=== PATIENT | female | born 1950 | race Asian ===

== ENCOUNTER 2016-10-18 21:44 | Emergency (ER) | payer OTHER ==
[~2016-10-18] VITALS: Ht 165.1 cm; Wt 106.6 kg
[2016-10-18 22:02] VITALS: BP 175/95
[2016-10-18 22:26] VITALS: TEMP 98.4
== END 2016-10-18 22:30 | disposition home or self-care (01) ==
LOC: ED 21:44
DX: B02.9 Zoster without complications (principal)
CPT/HCPCS: 99282

== ENCOUNTER 2016-10-21 16:57 | Outpatient (CLI) | payer OTHER ==
[2016-10-21 17:30] LABS: PLATELET COUNT 266 K/uL (152-353)
[2016-10-21 18:06] LABS: POTASSIUM 4.1 mmol/L (3.6-5.2)
== END 2016-10-21 19:08 | disposition home or self-care (01) ==
LOC: LABW 16:57
PROVIDERS: Nurse Practitioner
DX: R59.1 Generalized enlarged lymph nodes (principal); J02.9 Acute pharyngitis, unspecified
CPT/HCPCS: 36415; 80053; 85027; 85651; 86140; 86735

== ENCOUNTER 2016-10-25 11:51 | Outpatient (CLI) | payer OTHER | END 2016-10-25 19:15 | disposition home or self-care (01) | LOC: CT 11:51 | DX: J02.8 Acute pharyngitis due to other specified organisms (principal) ==

== ENCOUNTER 2016-12-09 08:33 | Outpatient (CLI) | payer OTHER ==
[2016-12-09 08:53] LABS: PLATELET COUNT 228 K/uL (152-353)
[2016-12-09 09:01] LABS: POTASSIUM 3.1 mmol/L (3.6-5.2)
== END 2016-12-09 19:44 | disposition home or self-care (01) ==
LOC: LABW 08:33
PROVIDERS: Nurse Practitioner
DX: Z01.89 Encounter for other specified special examinations (principal); R73.09 Other abnormal glucose
CPT/HCPCS: 36415; 80048; 85027

== ENCOUNTER 2016-12-22 10:18 | Outpatient (CLI) | payer OTHER ==
[2016-12-22 11:02] LABS: PLATELET COUNT 231 K/uL (152-353)
== END 2016-12-22 11:20 | disposition home or self-care (01) ==
LOC: LABW 10:18
PROVIDERS: Internal Medicine Gastroenterology
DX: K57.30 Diverticulosis of large intestine without perforation or abscess without bleeding (principal)
CPT/HCPCS: 36415; 85027

== ENCOUNTER 2017-04-25 09:01 | Outpatient (CLI) | payer OTHER ==
[2017-04-25 09:23] LABS: PLATELET COUNT 247 K/uL (152-353)
[2017-04-25 10:15] LABS: POTASSIUM 3.3 mmol/L (3.6-5.2)
== END 2017-04-25 18:57 | disposition home or self-care (01) ==
LOC: LABW 09:01
PROVIDERS: Nurse Practitioner
DX: E11.9 Type 2 diabetes mellitus without complications (principal); E78.00 Pure hypercholesterolemia, unspecified; I10 Essential (primary) hypertension; E55.9 Vitamin D deficiency, unspecified; R53.83 Other fatigue
CPT/HCPCS: 36415; 80053; 80061; 81000; 82043; 82306; 82570; 82607; 83036; 84443; 85027

== ENCOUNTER 2017-07-26 11:40 | Outpatient (CLI) | payer OTHER | END 2017-07-26 19:09 | disposition home or self-care (01) | LOC: RAD 11:40 | DX: M25.542 Pain in joints of left hand (principal) ==

== ENCOUNTER 2017-08-03 11:06 | Outpatient (CLI) | payer OTHER | END 2017-08-03 19:56 | disposition home or self-care (01) | LOC: LABW 11:06 | DX: M10.071 Idiopathic gout, right ankle and foot (principal) | CPT/HCPCS: 36415; 84550; 85651 ==

== ENCOUNTER 2017-08-22 10:47 | Outpatient (CLI) | payer OTHER | END 2017-08-22 20:24 | disposition home or self-care (01) | LOC: LABW 10:47 | DX: M10.071 Idiopathic gout, right ankle and foot (principal) | CPT/HCPCS: 36415; 84550; 85651 ==

== ENCOUNTER 2018-02-14 08:47 | Outpatient (CLI) | payer OTHER | END 2018-02-14 23:38 | disposition home or self-care (01) | LOC: MAMMO 08:47 | DX: Z12.31 Encounter for screening mammogram for malignant neoplasm of breast (principal) ==

== ENCOUNTER 2018-03-21 19:33 | Emergency (ER) | payer OTHER ==
[~2018-03-21] VITALS: Ht 165.1 cm; Wt 102.1 kg
[2018-03-21 21:19] LABS: PLATELET COUNT 292 K/uL (152-353)
[2018-03-21 21:38] LABS: SODIUM 138 mmol/L (136-145)
[2018-03-21 21:47] LABS: POTASSIUM 4.7 mmol/L (3.6-5.2)
[2018-03-21 23:10] VITALS: BP 152/86; TEMP 98.6
== END 2018-03-21 23:10 | disposition home or self-care (01) ==
LOC: ED 19:33
PROVIDERS: Internal Medicine
DX: R27.0 Ataxia, unspecified (principal); R42 Dizziness and giddiness; R11.0 Nausea; R19.7 Diarrhea, unspecified
CPT/HCPCS: 80053; 82550; 84484; 85027; 93005; 96365; 99284

== ENCOUNTER 2018-03-24 09:39 | Emergency (ER) | payer OTHER ==
[~2018-03-24] VITALS: Ht 165.1 cm; Wt 102.1 kg
[2018-03-24 09:48] VITALS: TEMP 97.3
[2018-03-24 10:32] LABS: PLATELET COUNT 283 K/uL (152-353)
[2018-03-24 10:39] LABS: POTASSIUM 4.2 mmol/L (3.6-5.2)
[2018-03-24 12:26] VITALS: BP 139/72
== END 2018-03-24 12:41 | disposition home or self-care (01) ==
LOC: ED 09:39
DX: E11.9 Type 2 diabetes mellitus without complications (principal)
CPT/HCPCS: 36415; 80053; 81000; 83036; 84484; 85027; 93005; 99283

== ENCOUNTER 2018-06-13 14:50 | Outpatient (CLI) | payer OTHER | END 2018-06-13 20:58 | disposition home or self-care (01) | LOC: LABW 14:50 | DX: B35.1 Tinea unguium (principal) | CPT/HCPCS: 36415; 84450; 84460 ==

== ENCOUNTER 2018-06-19 15:37 | Outpatient (CLI) | payer OTHER | END 2018-06-19 20:38 | disposition home or self-care (01) | LOC: RAD 15:37 | DX: M17.11 Unilateral primary osteoarthritis, right knee (principal) ==

== ENCOUNTER 2018-12-18 09:00 | Outpatient (CLI) | payer OTHER ==
[~2018-12-18] VITALS: Ht 165.1 cm; Wt 103.4 kg
== END 2018-12-18 19:11 | disposition home or self-care (01) ==
LOC: CT 09:00
DX: R10.11 Right upper quadrant pain (principal)
CPT/HCPCS: 36415; 82565; 84520; J0461; J1200; J2920; Q9963

== ENCOUNTER 2019-03-07 15:47 | Outpatient (CLI) | payer OTHER | END 2019-03-07 23:59 | LOC: MAMMO 15:47 | DX: Z12.31 Encounter for screening mammogram for malignant neoplasm of breast (principal) ==

== ENCOUNTER 2019-05-09 06:54 | Emergency (ER) | payer OTHER ==
[~2019-05-09] VITALS: Ht 165.1 cm; Wt 101.2 kg
[2019-05-09 07:03] VITALS: TEMP 98.2
[2019-05-09 07:52] LABS: POTASSIUM 4.1 mmol/L (3.6-5.2); SODIUM 141 mmol/L (136-145)
[2019-05-09 08:03] LABS: PLATELET COUNT 269 K/uL (152-353)
[2019-05-09 09:35] VITALS: BP 108/75
== END 2019-05-09 09:35 | disposition home or self-care (01) ==
LOC: ED 06:54
PROVIDERS: Emergency Medicine
DX: K21.9 Gastro-esophageal reflux disease without esophagitis (principal); R07.89 Other chest pain
CPT/HCPCS: 80053; 82550; 82553; 84484; 85027; 93005; 99284

== ENCOUNTER 2019-06-20 12:57 | Observation (INO) | payer OTHER ==
[~2019-06-20] VITALS: Ht 165.1 cm; Wt 99.4 kg
[2019-06-20 14:48] LABS: POTASSIUM 3.7 mmol/L (3.6-5.2); SODIUM 144 mmol/L (136-145)
[2019-06-20 14:53] LABS: PLATELET COUNT 226 K/uL (152-353)
[2019-06-20 15:12] VITALS: BP 160/88; TEMP 98.5; Ht 165.1 cm; Wt 99.4 kg
[2019-06-20 16:00] VITALS: BP 143/77; TEMP 98.2
[2019-06-20] MEDS ORDERED: METF500T PO (18:36)
[2019-06-20] MEDS ORDERED: METOCLOPRAMIDE10 M1 PO (18:38)
[2019-06-20] MEDS ORDERED: PANTOPRAZOLE 40MG TA PO (18:39)
[2019-06-20] MEDS ORDERED: MECLIZINE25 MG PO (18:40)
[2019-06-20] MEDS ORDERED: LIPITOR20 MG PO (18:40)
[2019-06-20] MEDS ORDERED: LATA0.00 OPTH (18:44)
[2019-06-20] MEDS ORDERED: BENICAR HCT1 TAB PO (18:45)
[2019-06-20 20:00] VITALS: BP 143/61; TEMP 98.6
[2019-06-21] VITALS: BP 118/60; TEMP 98.7
[2019-06-21 03:55] VITALS: BP 117/52; TEMP 98.4
[2019-06-21 08:00] VITALS: BP 135/66; TEMP 98.2
[2019-06-21 12:00] VITALS: BP 140/77; TEMP 98.6
[2019-06-21 16:00] VITALS: BP 136/78; TEMP 98.7
[2019-06-21 20:00] VITALS: BP 153/48; TEMP 99
[2019-06-22] VITALS: BP 114/64; TEMP 98.8
[2019-06-22 04:00] VITALS: BP 118/64; TEMP 98.3
[2019-06-22 07:37] LABS: POTASSIUM 3.7 mmol/L (3.6-5.2)
[2019-06-22 07:46] LABS: PLATELET COUNT 225 K/uL (152-353)
[2019-06-22 08:00] VITALS: BP 112/50; TEMP 98.6
[2019-06-22 12:05] VITALS: BP 128/78; TEMP 99.3
[2019-06-22] MEDS ORDERED: RANI150T78 PO (14:07)
== END 2019-06-22 15:50 | disposition home or self-care (01) ==
LOC: MED/SURG 12:57
PROVIDERS: Internal Medicine; ADMIT Nurse Practitioner
DX: R13.19 Other dysphagia (principal); K44.9 Diaphragmatic hernia without obstruction or gangrene; E11.9 Type 2 diabetes mellitus without complications; E78.49 Other hyperlipidemia; I10 Essential (primary) hypertension; K21.9 Gastro-esophageal reflux disease without esophagitis; K27.9 Peptic ulcer, site unspecified, unspecified as acute or chronic, without hemorrhage or perforation; R05 Cough; R10.13 Epigastric pain
CPT/HCPCS: 80053; 82550; 82948; 84484; 85027; 87502; 93005; 94640; 94664; 94760; 96367; 96372; 96374; 99220; G0378; G0379; J1650; J1956

== ENCOUNTER 2019-07-31 07:53 | Outpatient (CLI) | payer OTHER ==
[~2019-07-31] VITALS: Ht 165.1 cm; Wt 99.8 kg
[~2019-07-31 07:53] MED LIST: BENICAR HCT1 TAB PO; LATA0.00 OPTH; LIPITOR20 MG PO; MECLIZINE25 MG PO; METF500T PO; METOCLOPRAMIDE10 M1 PO; PANTOPRAZOLE 40MG TA PO; RANI150T78 PO
== END 2019-07-31 19:36 | disposition home or self-care (01) ==
LOC: NM 07:53
DX: R06.02 Shortness of breath (principal); E04.8 Other specified nontoxic goiter
CPT/HCPCS: A9500; J2785

== ENCOUNTER 2019-08-24 11:29 | Outpatient (CLI) | payer OTHER | END 2019-08-24 21:19 | disposition home or self-care (01) | LOC: RAD 11:29 | DX: M25.512 Pain in left shoulder (principal) ==

== ENCOUNTER 2019-12-19 08:59 | Outpatient (CLI) | payer OTHER | END 2019-12-19 21:49 | disposition home or self-care (01) | LOC: MAMMO 08:59 | DX: N64.4 Mastodynia (principal); N63.10 Unspecified lump in the right breast, unspecified quadrant; N60.11 Diffuse cystic mastopathy of right breast; N60.12 Diffuse cystic mastopathy of left breast | CPT/HCPCS: G0279 ==

== ENCOUNTER 2020-04-19 18:55 | Emergency (ER) | payer OTHER ==
[~2020-04-19] VITALS: Ht 165.1 cm; Wt 102.1 kg
[2020-04-19 20:05] VITALS: BP 142/70; TEMP 98.1
== END 2020-04-19 20:05 | disposition home or self-care (01) ==
LOC: ED 18:55
DX: M17.11 Unilateral primary osteoarthritis, right knee (principal); M54.5 Low back pain; G89.29 Other chronic pain; M54.16 Radiculopathy, lumbar region
CPT/HCPCS: 96372; 99283; J1885; J2930

== ENCOUNTER 2020-05-01 15:02 | Outpatient (CLI) | payer OTHER | END 2020-05-01 22:19 | disposition home or self-care (01) | LOC: MAMMO 15:02 | DX: Z12.31 Encounter for screening mammogram for malignant neoplasm of breast (principal) ==

== ENCOUNTER 2020-05-21 09:36 | Emergency (ER) | payer OTHER ==
[~2020-05-21] VITALS: Ht 165.1 cm; Wt 102.1 kg
[2020-05-21 12:44] LABS: PLATELET COUNT 232 K/uL (152-353)
[2020-05-21 12:48] LABS: POTASSIUM 4.3 mmol/L (3.6-5.2)
[2020-05-21 13:26] LABS: PARTIAL THROMBOPLASTIN TIME 28.5 SECONDS (24.5-33.6)
[2020-05-21 14:18] VITALS: BP 145/68; TEMP 98.3
== END 2020-05-21 14:30 | disposition home or self-care (01) ==
LOC: ED 09:36
PROVIDERS: Hospitalist
DX: M54.5 Low back pain (principal); G89.29 Other chronic pain; M79.605 Pain in left leg; M79.604 Pain in right leg
CPT/HCPCS: 80048; 85027; 85379; 85610; 85730; 96372; 99283; J1885; J2360

== ENCOUNTER 2020-06-23 08:08 | Emergency (ER) | payer OTHER ==
[~2020-06-23] VITALS: Ht 165.1 cm; Wt 98.4 kg
[2020-06-23 08:23] VITALS: TEMP 99.8
[2020-06-23 09:28] LABS: PLATELET COUNT 228 K/uL (152-353)
[2020-06-23 09:33] LABS: POTASSIUM 3.8 mmol/L (3.6-5.2)
[2020-06-23 11:11] VITALS: BP 138/82
== END 2020-06-23 11:12 | disposition home or self-care (01) ==
LOC: ED 08:08
PROVIDERS: Emergency Medicine Emergency Medical Services
DX: J20.9 Acute bronchitis, unspecified (principal); J01.80 Other acute sinusitis
CPT/HCPCS: 80048; 81000; 85027; 99283

== ENCOUNTER 2020-07-21 18:34 | Inpatient (IN) | payer OTHER ==
[~2020-07-21] VITALS: Ht 165.1 cm; Wt 107.5 kg
[2020-07-21] VITALS (8 sets, daily range): BP systolic 94–193; BP diastolic 57–86; TEMP 99.4–99.5
[2020-07-21 20:24] LABS: PLATELET COUNT 165 K/uL (152-353)
[2020-07-21 20:44] LABS: POTASSIUM 4.2 mmol/L (3.6-5.2)
[2020-07-22 01:56] VITALS: BP 113/62; TEMP 99.4; Ht 165.1 cm; Wt 107.5 kg
[2020-07-22] MEDS ORDERED: METOCLOPRAM10 MG PO (02:43)
[2020-07-22] MEDS ORDERED: PANTOPRAZOLE 40MG TA PO (02:44)
[2020-07-22] MEDS ORDERED: EQ MOTION SICKN25 MG PO (02:45)
[2020-07-22] MEDS ORDERED: FURO20TA67 PO (02:46)
[2020-07-22] MEDS ORDERED: DOXEPIN HCL10 MG PO (02:48)
[2020-07-22] MEDS ORDERED: OZEMPIC2 MG/1.5 M SC (02:49)
[2020-07-22] MEDS ORDERED: MULTIVITAMI1 PO (02:50)
[2020-07-22] MEDS ORDERED: ASCO500T18 PO (02:51)
[2020-07-22] MEDS ORDERED: VITAMIN D31000 UNIT PO (02:51)
[2020-07-22 03:40] VITALS: BP 97/51; TEMP 98.2
[2020-07-22 08:00] VITALS: BP 98/65; TEMP 97.7
[2020-07-22 12:00] VITALS: BP 98/56; TEMP 98.1
[2020-07-22 16:00] VITALS: BP 112/67; TEMP 98.4
[2020-07-22 20:00] VITALS: BP 95/55; TEMP 98.9
[2020-07-23] VITALS: BP 117/67; TEMP 98.1
[2020-07-23 04:00] VITALS: BP 128/72; TEMP 97.8
[2020-07-23 05:36] LABS: PLATELET COUNT 173 K/uL (152-353)
[2020-07-23 05:51] LABS: POTASSIUM 4.8 mmol/L (3.6-5.2)
[2020-07-23 08:00] VITALS: BP 121/65; TEMP 98.3
[2020-07-23 12:00] VITALS: BP 111/58; TEMP 98.2
[2020-07-23 16:00] VITALS: BP 109/57; TEMP 99.8
[2020-07-23 20:00] VITALS: BP 117/61; TEMP 99
[2020-07-24] VITALS (7 sets, daily range): BP systolic 125–166; BP diastolic 65–81; TEMP 97.5–98.7
[2020-07-24 04:46] LABS: PLATELET COUNT 197 K/uL (152-353)
[2020-07-24 05:25] LABS: POTASSIUM 4.4 mmol/L (3.6-5.2)
[2020-07-25 03:39] VITALS: BP 126/70; TEMP 97.7
[2020-07-25 05:17] LABS: PLATELET COUNT 219 K/uL (152-353)
[2020-07-25 05:21] LABS: POTASSIUM 5.1 mmol/L (3.6-5.2)
[2020-07-25 08:00] VITALS: BP 133/63; TEMP 98.1
[2020-07-25 12:00] VITALS: BP 133/68; TEMP 98.6
[2020-07-25 16:00] VITALS: BP 132/68; TEMP 98.4
[2020-07-25 20:00] VITALS: BP 145/76; TEMP 98.1
[2020-07-26] VITALS (7 sets, daily range): BP systolic 137–183; BP diastolic 67–87; TEMP 98.1–99
[2020-07-26 06:17] LABS: PLATELET COUNT 241 K/uL (152-353)
[2020-07-26 06:30] LABS: POTASSIUM 4.3 mmol/L (3.6-5.2)
[2020-07-27 04:00] VITALS: BP 163/78; TEMP 97.4
[2020-07-27 05:33] LABS: PLATELET COUNT 269 K/uL (152-353)
[2020-07-27 05:45] LABS: POTASSIUM 3.9 mmol/L (3.6-5.2)
[2020-07-27 08:00] VITALS: BP 144/73; TEMP 98.2
[2020-07-27 12:00] VITALS: BP 127/55; TEMP 97.6
[2020-07-27 16:00] VITALS: BP 149/69; TEMP 97.9
[2020-07-27 20:00] VITALS: BP 156/88; TEMP 98.5
[2020-07-28] VITALS (7 sets, daily range): BP systolic 126–152; BP diastolic 62–80; TEMP 98–98.5
[2020-07-28 06:33] LABS: PLATELET COUNT 285 K/uL (152-353)
[2020-07-28 06:42] LABS: POTASSIUM 3.6 mmol/L (3.6-5.2)
[2020-07-29 04:00] VITALS: BP 116/62; TEMP 98
[2020-07-29 06:25] LABS: PLATELET COUNT 287 K/uL (152-353)
[2020-07-29 06:50] LABS: POTASSIUM 3.9 mmol/L (3.6-5.2)
[2020-07-29 08:00] VITALS: BP 140/78; TEMP 98.4
[2020-07-29 12:00] VITALS: BP 138/63; TEMP 98.4
== END 2020-07-29 17:15 | disposition home or self-care (01) | DRG 177 ==
LOC: ED 18:34 → MED/SURG 22:47 → UNDODEPER 07-22 23:05 → MED/SURG 07-29 17:15
PROVIDERS: Internal Medicine Endocrinology, Diabetes & Metabolism; ADMIT Emergency Medicine Emergency Medical Services; ATTEND Internal Medicine
DX: U07.1 COVID-19 (principal); J18.8 Other pneumonia, unspecified organism; E78.49 Other hyperlipidemia; H40.89 Other specified glaucoma; E11.22 Type 2 diabetes mellitus with diabetic chronic kidney disease; I12.9 Hypertensive chronic kidney disease with stage 1 through stage 4 chronic kidney disease, or unspecified chronic kidney disease; N18.30 Chronic kidney disease, stage 3 unspecified
CPT/HCPCS: 36415; 80053; 82570; 84300; 84439; 84443; 85027; 87635; 93005; 94664; 94760; 96360; 96375; 99284; J0456; J0696; J1100; J1650; J1885; J2405; U0003

== ENCOUNTER 2020-08-29 09:38 | Outpatient (CLI) | payer OTHER ==
[~2020-08-29 09:38] MED LIST changes: +ASCO500T18 PO; +DOXEPIN HCL10 MG PO; +EQ MOTION SICKN25 MG PO; +FURO20TA67 PO; +METOCLOPRAM10 MG PO; +MULTIVITAMI1 PO; +OZEMPIC2 MG/1.5 M SC; +VITAMIN D31000 UNIT PO
[2020-08-29 10:11] LABS: PLATELET COUNT 333 K/uL (152-353)
[2020-08-29 10:33] LABS: POTASSIUM 3.3 mmol/L (3.6-5.2)
== END 2020-08-29 21:49 | disposition home or self-care (01) ==
LOC: LABW 09:38
PROVIDERS: ATTEND Nurse Practitioner Family
DX: I10 Essential (primary) hypertension (principal); M10.9 Gout, unspecified; R06.09 Other forms of dyspnea
CPT/HCPCS: 36415; 80053; 81000; 83880; 84550; 85027

== ENCOUNTER 2020-09-15 15:08 | Observation (INO) | payer OTHER ==
[2020-09-15] VITALS (10 sets, daily range): BP systolic 125–178; BP diastolic 72–95; TEMP 98.2
[~2020-09-15] VITALS: Ht 165.1 cm; Wt 103.9 kg
[2020-09-15 15:58] LABS: PLATELET COUNT 264 K/uL (152-353)
[2020-09-15 16:06] LABS: POTASSIUM 3.9 mmol/L (3.6-5.2); SODIUM 140 mmol/L (136-145)
[2020-09-16] VITALS (8 sets, daily range): BP systolic 115–157; BP diastolic 55–83; TEMP 98.1–99.2; Ht 165.1 cm; Wt 103.9 kg
--- NOTE | 2020-09-16 02:20 | NUR ---
09/15/2020 AT 2050 PATIENT ADMITTED TO ROOM# 1110 VIA WHEELCHAIR FROM THE ER, REPORT GIVEN BY FE ROBERTSON RN. PATIENT IS ALERT AND ORIENTED X 4, SKIN WARM AND DRY AND NO ACUTE DISTRESS NOTED AT THIS TIME. PATIENT ORIENTED TO ROOM AND CALL SYSTEM AND VERBALIZES UNDERSTANDING OF ALL INFORMATION GIVEN AND DENIES ANY QUESTIONS OR COMPLAINTS AT THIS TIME. PATIENT ASSESSED AND ADMISSION ASSESSMENT COMPLETED. PATIENT TOLERATED WELL. PATIENT HAS A IV SITE, A 20G IN HER LEFT AC WHICH IS SALINE LOCKED AT THIS TIME. CALL LIGHT WITHIN HER REACH. WILL CONTINUE TO MONITOR.
[2020-09-16] MEDS ORDERED: ZINC220C4 PO (06:02)
[2020-09-16 06:53] LABS: POTASSIUM 4.5 mmol/L (3.6-5.2); SODIUM 138 mmol/L (136-145)
--- NOTE | 2020-09-16 07:00 | NUR ---
REC'D REPORT FROM FRANSISCO LUDWIG RN. PER FRANSISCO GARCIA NOTIFIED OF AM LABS AND HOME MEDS.
[2020-09-16 07:10] LABS: PLATELET COUNT 222 K/uL (152-353)
--- NOTE | 2020-09-16 07:55 | NUR ---
PT SITTING UP IN BED WATCHING TV. NAD NOTED. PT DENIES ANY CHEST PAIN AT THIS TIME. PT REPORTS FEELING BETTER THIS MORNING. AM ASSESSMENT COMPLETED AT THIS TIME. NO SWELLING, SOB, OR ABNORMAL LUNGS SOUNDS NOTED.
--- NOTE | 2020-09-16 09:20 | NUR ---
PT AM MEDS GIVEN AT THIS TIME. EXPLAINED TO PT WHAT EACH MED IS AND WHY SHE IS REC'ING THESE. PT VOICES UNDERSTANDING. WILL CON'T TO MONITOR.
[2020-09-16] MEDS ORDERED: BENICAR HCT1 TAB PO (10:29)
--- NOTE | 2020-09-16 14:30 | NUR ---
SPOKE TO DR. RADHA FAROOQING PT COMPLAINING OF A HEADACHE, DR. GARCIA ORDERS TYLENOL 1G PO ONCE, NO FURTHER ORDERS GIVEN
--- NOTE | 2020-09-16 21:00 | NUR ---
FSBS 179.
--- NOTE | 2020-09-16 21:40 | NUR ---
TOOK PT HER NIGHTLY MEDICATIONS, TOOK MEDS PO WITH NO PROBLEMS, TALKATIVE WITH ALTERNATIVE FINANCING SPECIALIST AND DENIES ANY NEEDS AT THIS TIME, RAILS UP, BED IN LOW POSITION, CALL LIGHT IN REACH.
--- NOTE | 2020-09-17 01:08 | NUR ---
RESTING WITH EYES CLOSED NO S/S OF PAIN OR DISTRESS NOTED, RESP RATE NONLABORED, IV INTACT, TELEMETRY IN USE, AROUSES BRIEFLY AND DENIES ANY PAIN OR PROBLEMS AT THIS TIME. ENCOURAGED TO CALL NEEDED, RAILS UP, BED IN LOW POSITION, CALL LIGHT IN REACH.
--- NOTE | 2020-09-17 03:00 | NUR ---
RESTING WITH EYES CLOSED, NO S/S OFF PAIN OR DISTRESS NOTED, WILL MONITOR CLOSELY, RAILS UP, BED IN LOW POSITION. TELEMETRY IN USE, IV LOCK INTACT.
[2020-09-17 04:00] VITALS: BP 105/63; TEMP 98
--- NOTE | 2020-09-17 05:48 | NUR ---
RESTING WITH EYES CLOSED, NO S/S OF PAIN OR DISTRESS NOTED, RESP RATE NONLABORED, TELEMETRY IN USE WITH REGULAR RATE OF 88, IV INTACT, WILL MONITOR, RAILS UP, BED IN LOW POSITION, CALL LIGHT IN REACH.
--- NOTE | 2020-09-17 05:49 | NUR ---
NOTE PT AROUSED BRIEFLY AND DENIES ANY PAIN OR PROBLEMS AT THIS TIME. ALERT AND ORIENTED NO DISTRESS NOTED. DENIES ANY NEEDS.
[2020-09-17 08:00] VITALS: BP 146/80; TEMP 98.2
--- NOTE | 2020-09-17 08:00 | NUR ---
PATIENT SITTING ON SIDE OF BED. NAD NOTED. MORNING MEDICATIONS GIVEN. PATIENT DRESSED HERSELF AND WAITING FOR DISCHARGE.
--- NOTE | 2020-09-17 11:15 | NUR ---
OFFERED PT SHOWER PRIOR TO PLACEMENT OF CARDIC MONITOR. SHE STATED SHE WOULD TAKE A MOON BATH WHEN SHE GETS HOME
--- NOTE | 2020-09-17 11:20 | NUR ---
RESPIRATORY AT BEDSIDE TO PLACE HALTER MONITOR.
[2020-09-17 12:00] VITALS: BP 131/76; TEMP 97.8
--- NOTE | 2020-09-17 12:05 | NUR ---
1136 PT UP TO BR HR INCREASE TO 147 PER TELE. PT C/O CHEST PRESSURE, TINGLING IN LEFT SHOULDER, SHORTNESS OF BREATH. DR GARCIA NOTIFIED NEW ORDERS GIVEN FOR EKG COREG AND TRANSFER.
--- NOTE | 2020-09-17 12:15 | NUR ---
1143 CALLED [facility] TRANSFER [place] SPOKE TO KESHA. I WAS PLACED ON HOLD THEN CONNECTION WAS LOST. CALLED BACK SPOKE TO MANJU MIKE PT COORD. FOR BED ASSIGNMENT. AT 1213 PATRICK SSTATED SHE WOULD CALL BACK TO FACILITY WITH ANY UPDATED INFORMATION
--- NOTE | 2020-09-17 14:13 | NUR ---
1330 SPOKE TO ERVIN BAI PT ASSIGNED TO BED [address] RONDON ACCEPTED PT PER ISAAK GARCIA DO. 1405 SPOKE TO OSMAN AT [facility] ON [facility]. PT NOW ASSIGNED TO BED 414 ON TELE FLOOR. CALL REPORT TO [phone], FAX CHART TO [phone].
--- NOTE | 2020-09-17 15:14 | NUR ---
1430 CALLED [phone] TO GIVE REPORT. NURSE TO RECIEVE THIS PT IS NOT AVALIABLE AT THIS TIME
--- NOTE | 2020-09-17 15:20 | NUR ---
CALLED REPORT TO SANDRA AT [phone]
--- NOTE | 2020-09-17 15:27 | NUR ---
[facility] CALLED BACK [facility] WILL ARRIVE TO GET PT TO TRANSPORT TO [facility] IN 45 MINUTES
--- NOTE | 2020-09-17 16:50 | NUR ---
HERE TO MARKETING CONSULTANT PATIENT. PATIENT TRANSPORTED TO [place].
--- NOTE | 2020-09-17 17:40 | NUR ---
1645-[facility] ARRIVED TO TRANSPORT PT. DR. GARCIA HERE TO SEE PT BEFORE DISCHARGED TO [facility] IN [facility]. PT LEFT IN NO DISTRESS.
== END 2020-09-17 16:50 | disposition short-term general hospital (02) ==
LOC: ED 15:08 → MED/SURG 19:10
PROVIDERS: ADMIT Emergency Medicine Emergency Medical Services; ATTEND Family Medicine
DX: I20.0 Unstable angina (principal); R00.0 Tachycardia, unspecified; E66.8 Other obesity; E11.9 Type 2 diabetes mellitus without complications; I10 Essential (primary) hypertension; R07.9 Chest pain, unspecified; Z79.899 Other long term (current) drug therapy
CPT/HCPCS: 36415; 80053; 80307; 82550; 82948; 83735; 84100; 84443; 84484; 85027; 85379; 87635; 93005; 96360; 96367; 96372; 96374; 96375; 99220; 99284; G0378; J1100; J1200; J1885; J3475; Q9963; U0003

== ENCOUNTER 2020-09-24 13:32 | Outpatient (CLI) | payer OTHER ==
[~2020-09-24 13:32] MED LIST changes: +ZINC220C4 PO
[2020-09-24 14:32] LABS: PLATELET COUNT 264 K/uL (152-353)
[2020-09-24 15:25] LABS: POTASSIUM 4.1 mmol/L (3.6-5.2)
== END 2020-09-24 19:58 | disposition home or self-care (01) ==
LOC: LABW 13:32
PROVIDERS: ATTEND Student in an Organized Health Care Education/Training Program
DX: N18.32 Chronic kidney disease, stage 3b (principal); R53.82 Chronic fatigue, unspecified; E11.9 Type 2 diabetes mellitus without complications
CPT/HCPCS: 36415; 80053; 80074; 81000; 82043; 82306; 82330; 82570; 83036; 83516; 83735; 83970; 84155; 84165; 85027; 86038; 86160; 86255; 86430; 86592; 87535; G0432

== ENCOUNTER 2020-11-25 11:08 | Outpatient (CLI) | payer OTHER ==
[2020-11-25 11:33] LABS: PLATELET COUNT 233 K/uL (152-353)
[2020-11-25 11:44] LABS: POTASSIUM 3.6 mmol/L (3.6-5.2)
== END 2020-11-25 22:00 | disposition home or self-care (01) ==
LOC: LABW 11:08
PROVIDERS: ATTEND Student in an Organized Health Care Education/Training Program
DX: N18.32 Chronic kidney disease, stage 3b (principal)
CPT/HCPCS: 36415; 80053; 81000; 82306; 82570; 83970; 84155; 85027

== ENCOUNTER 2021-01-09 11:02 | Outpatient (CLI) | payer OTHER ==
[2021-01-19 08:20] LABS: POTASSIUM 4.3 mmol/L (3.6-5.2)
== END 2021-01-09 17:00 | disposition home or self-care (01) ==
LOC: LABW 11:02
PROVIDERS: ATTEND Internal Medicine Cardiovascular Disease
DX: I50.9 Heart failure, unspecified (principal); Z79.899 Other long term (current) drug therapy
CPT/HCPCS: 36415; 80048

== ENCOUNTER 2021-01-27 11:03 | Outpatient (CLI) | payer OTHER | END 2021-01-27 22:25 | disposition home or self-care (01) | LOC: RAD 11:03 | PROVIDERS: ATTEND Nurse Practitioner Family | DX: M54.17 Radiculopathy, lumbosacral region (principal) ==

== ENCOUNTER 2021-01-28 12:53 | Emergency (ER) | payer OTHER ==
[~2021-01-28] VITALS: Ht 165.1 cm; Wt 103.9 kg
[2021-01-28 13:58] LABS: PLATELET COUNT 222 K/uL (152-353)
[2021-01-28 14:04] LABS: SODIUM 142 mmol/L (136-145)
[2021-01-28 18:00] VITALS: BP 122/65; TEMP 97.8
== END 2021-01-28 18:00 | disposition home or self-care (01) ==
LOC: ED 12:53
PROVIDERS: Family Medicine
DX: E86.0 Dehydration (principal)
CPT/HCPCS: 36415; 80053; 82550; 82553; 84484; 85027; 96360; 96375; 99284; J2405

== ENCOUNTER 2021-02-24 09:22 | Outpatient (CLI) | payer OTHER | END 2021-02-24 19:22 | disposition home or self-care (01) | LOC: US 09:22 | PROVIDERS: ATTEND Nurse Practitioner Family | DX: I73.9 Peripheral vascular disease, unspecified (principal) ==

== ENCOUNTER 2021-03-03 09:37 | Emergency (ER) | payer OTHER ==
[~2021-03-03] VITALS: Ht 165.1 cm; Wt 100.2 kg
[2021-03-03 12:35] VITALS: BP 141/79; TEMP 98.1
== END 2021-03-03 12:35 | disposition home or self-care (01) ==
LOC: ED 09:37
DX: M54.16 Radiculopathy, lumbar region (principal)
CPT/HCPCS: 96372; 99282; 99283; J1885; J2930

== ENCOUNTER 2021-03-30 15:18 | Outpatient (CLI) | payer OTHER ==
[2021-03-30 15:39] LABS: PLATELET COUNT 265 K/uL (152-353)
== END 2021-03-30 22:26 | disposition home or self-care (01) ==
LOC: LABW 15:18
PROVIDERS: ATTEND Student in an Organized Health Care Education/Training Program
DX: I12.9 Hypertensive chronic kidney disease with stage 1 through stage 4 chronic kidney disease, or unspecified chronic kidney disease (principal); N18.32 Chronic kidney disease, stage 3b; E11.9 Type 2 diabetes mellitus without complications; E87.6 Hypokalemia
CPT/HCPCS: 36415; 80053; 81000; 82306; 82570; 83036; 83970; 84155; 85027

== ENCOUNTER 2021-04-07 11:27 | Outpatient (CLI) | payer OTHER ==
[2021-04-07 11:50] LABS: PLATELET COUNT 278 K/uL (152-353)
[2021-04-07 12:05] LABS: POTASSIUM 4.3 mmol/L (3.6-5.2); SODIUM 141 mmol/L (136-145)
== END 2021-04-07 20:11 | disposition home or self-care (01) ==
LOC: LABW 11:27 → CT 11:27 → LABW 20:11
PROVIDERS: ATTEND Nurse Practitioner Family
DX: Z20.822 Contact with and (suspected) exposure to COVID-19 (principal); R06.02 Shortness of breath; R79.89 Other specified abnormal findings of blood chemistry
CPT/HCPCS: 36415; 80053; 82550; 82553; 82728; 83735; 83880; 84100; 84484; 85027; 85379; 86140

== ENCOUNTER 2021-04-08 15:33 | Outpatient (CLI) | payer OTHER | END 2021-04-08 20:40 | disposition home or self-care (01) | LOC: NM 15:33 | PROVIDERS: ATTEND Family Medicine | DX: R79.1 Abnormal coagulation profile (principal) | CPT/HCPCS: A9540; A9567 ==

== ENCOUNTER 2021-04-13 15:29 | Outpatient (CLI) | payer OTHER ==
[2021-04-13 15:55] LABS: POTASSIUM 4.2 mmol/L (3.6-5.2)
== END 2021-04-13 20:11 | disposition home or self-care (01) ==
LOC: LABW 15:29
PROVIDERS: ATTEND Student in an Organized Health Care Education/Training Program
DX: I12.9 Hypertensive chronic kidney disease with stage 1 through stage 4 chronic kidney disease, or unspecified chronic kidney disease (principal); N18.32 Chronic kidney disease, stage 3b; E11.9 Type 2 diabetes mellitus without complications; E87.6 Hypokalemia; R80.8 Other proteinuria
CPT/HCPCS: 36415; 80053; 81000; 82570; 84155

== ENCOUNTER 2021-08-04 14:15 | Outpatient (CLI) | payer OTHER ==
[2021-08-04 15:01] LABS: POTASSIUM 4.3 mmol/L (3.6-5.2)
== END 2021-08-04 19:03 | disposition home or self-care (01) ==
LOC: LABW 14:15
PROVIDERS: ATTEND Student in an Organized Health Care Education/Training Program
DX: I12.9 Hypertensive chronic kidney disease with stage 1 through stage 4 chronic kidney disease, or unspecified chronic kidney disease (principal); N18.32 Chronic kidney disease, stage 3b; E11.9 Type 2 diabetes mellitus without complications; E87.6 Hypokalemia; R80.8 Other proteinuria; N25.81 Secondary hyperparathyroidism of renal origin
CPT/HCPCS: 36415; 80053; 81000; 82306; 82570; 83970; 84155; 85018; 85049

== ENCOUNTER 2021-10-28 14:27 | Outpatient (CLI) | payer OTHER ==
[2021-10-28 14:45] LABS: PLATELET COUNT 231 K/uL (152-353)
[2021-10-28 14:56] LABS: POTASSIUM 4.5 mmol/L (3.6-5.2)
== END 2021-10-28 21:37 | disposition home or self-care (01) ==
LOC: LABW 14:27
PROVIDERS: ATTEND Student in an Organized Health Care Education/Training Program
DX: I12.9 Hypertensive chronic kidney disease with stage 1 through stage 4 chronic kidney disease, or unspecified chronic kidney disease (principal); N18.32 Chronic kidney disease, stage 3b; E11.9 Type 2 diabetes mellitus without complications; E87.6 Hypokalemia; R80.8 Other proteinuria; N25.81 Secondary hyperparathyroidism of renal origin
CPT/HCPCS: 36415; 80053; 81000; 82306; 82570; 83970; 84156; 85027

== ENCOUNTER 2021-12-06 17:53 | Emergency (ER) | payer OTHER ==
[~2021-12-06] VITALS: Ht 165.1 cm; Wt 100.2 kg
[2021-12-06 18:54] LABS: PLATELET COUNT 172 K/uL (152-353)
[2021-12-06 19:16] LABS: POTASSIUM 5.4 mmol/L (3.6-5.2)
[2021-12-06 20:35] VITALS: BP 145/75; TEMP 97.9
== END 2021-12-06 20:40 | disposition home or self-care (01) ==
LOC: ED 17:53
PROVIDERS: Hospitalist
DX: R42 Dizziness and giddiness (principal); G44.209 Tension-type headache, unspecified, not intractable; E83.42 Hypomagnesemia; I50.9 Heart failure, unspecified
CPT/HCPCS: 36415; 80053; 80320; 81000; 82550; 83735; 83880; 84484; 85027; 85610; 85730; 93005; 94760; 96374; 96375; 99284; J1885; J2405

== ENCOUNTER 2021-12-26 16:19 | Observation (INO) | payer OTHER ==
[~2021-12-26] VITALS: Ht 165.1 cm; Wt 105.0 kg
[2021-12-26 16:20] VITALS: BP 157/60; TEMP 98.3
[2021-12-26 16:49] LABS: PLATELET COUNT 173 K/uL (152-353)
[2021-12-26 17:28] LABS: PARTIAL THROMBOPLASTIN TIME 28.7 SECONDS (24.5-33.6)
[2021-12-26 19:00] VITALS: BP 138/68
[2021-12-26 20:51] VITALS: BP 129/61; TEMP 98.4; Ht 165.1 cm; Wt 105.0 kg
[2021-12-27] VITALS: BP 113/51; TEMP 97.6
[2021-12-27 04:00] VITALS: BP 121/57; TEMP 97.8
[2021-12-27 05:48] LABS: PLATELET COUNT 139 K/uL (152-353)
[2021-12-27 06:22] LABS: POTASSIUM 4.1 mmol/L (3.6-5.2)
[2021-12-27 08:00] VITALS: BP 107/48; TEMP 97.6
[2021-12-27 12:00] VITALS: BP 102/49; TEMP 98.2
[2021-12-27 16:00] VITALS: BP 133/59; TEMP 98
[2021-12-27] MEDS ORDERED: BUME1TAB19 PO (16:15)
[2021-12-27] MEDS ORDERED: PEPCID40 MG PO (16:16)
[2021-12-27] MEDS ORDERED: METO50TA63 PO (16:35)
[2021-12-27] MEDS ORDERED: MONT10TA PO (16:36)
[2021-12-27] MEDS ORDERED: FLONASE AL50 MCG/ACT EN (16:37)
[2021-12-27 20:00] VITALS: BP 109/82; TEMP 98
[2021-12-28 00:10] VITALS: BP 117/50; TEMP 98.5
[2021-12-28 04:28] VITALS: BP 109/51; TEMP 97.7
[2021-12-28 07:52] VITALS: BP 115/60; TEMP 98.7
[2021-12-28] MEDS ORDERED: MAGN400T4 PO (09:01)
[2021-12-28 11:43] VITALS: BP 125/58; TEMP 98.7
== END 2021-12-28 14:49 | disposition home health service (06) ==
LOC: ED 16:19 → MED/SURG 17:40
PROVIDERS: Emergency Medicine; ADMIT Internal Medicine; ATTEND Internal Medicine
DX: E83.42 Hypomagnesemia (principal); M15.8 Other polyosteoarthritis; E66.8 Other obesity; I10 Essential (primary) hypertension; R53.1 Weakness; R11.2 Nausea with vomiting, unspecified; E78.49 Other hyperlipidemia; E11.9 Type 2 diabetes mellitus without complications; N17.8 Other acute kidney failure; R42 Dizziness and giddiness; D64.89 Other specified anemias; R06.01 Orthopnea
CPT/HCPCS: 36415; 80053; 81000; 82550; 83735; 83880; 84484; 85027; 85610; 85730; 87635; 93005; 96360; 96365; 99220; 99284; G0378; J3475; U0003

== ENCOUNTER 2022-01-27 14:22 | Outpatient (CLI) | payer OTHER ==
[~2022-01-27 14:22] MED LIST changes: +BUME1TAB19 PO; +FLONASE AL50 MCG/ACT EN; +MAGN400T4 PO; +METO50TA63 PO; +MONT10TA PO; +PEPCID40 MG PO
[2022-01-27 14:54] LABS: POTASSIUM 4.2 mmol/L (3.6-5.2)
== END 2022-01-27 18:57 | disposition home or self-care (01) ==
LOC: LABW 14:22
PROVIDERS: ATTEND Student in an Organized Health Care Education/Training Program
DX: I12.9 Hypertensive chronic kidney disease with stage 1 through stage 4 chronic kidney disease, or unspecified chronic kidney disease (principal); N18.32 Chronic kidney disease, stage 3b; E11.9 Type 2 diabetes mellitus without complications; E87.6 Hypokalemia; R80.8 Other proteinuria; N25.81 Secondary hyperparathyroidism of renal origin; D63.1 Anemia in chronic kidney disease; E79.0 Hyperuricemia without signs of inflammatory arthritis and tophaceous disease; E87.2 Acidosis; E55.9 Vitamin D deficiency, unspecified
CPT/HCPCS: 36415; 80053; 81002; 82306; 82570; 83735; 83970; 84100; 84156; 84550; 85018

== ENCOUNTER 2022-06-03 12:26 | Outpatient (CLI) | payer OTHER ==
[2022-06-03 13:58] LABS: POTASSIUM 3.7 mmol/L (3.6-5.2)
== END 2022-06-03 18:59 | disposition home or self-care (01) ==
LOC: LABW 12:26
PROVIDERS: ATTEND Student in an Organized Health Care Education/Training Program
DX: N18.32 Chronic kidney disease, stage 3b (principal); I10 Essential (primary) hypertension; E87.6 Hypokalemia; R80.9 Proteinuria, unspecified; N25.81 Secondary hyperparathyroidism of renal origin; D63.1 Anemia in chronic kidney disease; E83.39 Other disorders of phosphorus metabolism; E79.0 Hyperuricemia without signs of inflammatory arthritis and tophaceous disease
CPT/HCPCS: 36415; 80053; 81002; 82306; 82570; 83735; 83970; 84100; 84156; 84550; 85018

== ENCOUNTER 2022-09-01 11:18 | Outpatient (CLI) | payer OTHER ==
[2022-09-01 11:30] LABS: PLATELET COUNT 138 K/uL (152-353)
[2022-09-01 11:50] LABS: SODIUM 138 mmol/L (136-145)
== END 2022-09-01 18:57 | disposition home or self-care (01) ==
LOC: LABW 11:18
PROVIDERS: ATTEND Internal Medicine Cardiovascular Disease
DX: Z79.899 Other long term (current) drug therapy (principal)
CPT/HCPCS: 36415; 80053; 80061; 85027

== ENCOUNTER 2022-09-28 13:58 | Outpatient (CLI) | payer OTHER ==
[2022-09-28 14:50] LABS: PLATELET COUNT 184 K/uL (152-353)
[2022-09-28 15:10] LABS: POTASSIUM 4.5 mmol/L (3.6-5.2)
== END 2022-09-28 19:28 | disposition home or self-care (01) ==
LOC: LABW 13:58
PROVIDERS: ATTEND Student in an Organized Health Care Education/Training Program
DX: R94.5 Abnormal results of liver function studies (principal); N18.32 Chronic kidney disease, stage 3b; E11.9 Type 2 diabetes mellitus without complications; E87.6 Hypokalemia; R80.8 Other proteinuria; N25.81 Secondary hyperparathyroidism of renal origin; D63.1 Anemia in chronic kidney disease; E79.0 Hyperuricemia without signs of inflammatory arthritis and tophaceous disease; E55.9 Vitamin D deficiency, unspecified; I12.9 Hypertensive chronic kidney disease with stage 1 through stage 4 chronic kidney disease, or unspecified chronic kidney disease
CPT/HCPCS: 36415; 80053; 81002; 82248; 82306; 82570; 83735; 83970; 84100; 84156; 84550; 85027

== ENCOUNTER 2022-10-01 11:18 | Outpatient (CLI) | payer OTHER | END 2022-10-01 19:16 | disposition home or self-care (01) | LOC: RAD 11:18 | PROVIDERS: ATTEND Registered Nurse | DX: Z13.820 Encounter for screening for osteoporosis (principal); N95.8 Other specified menopausal and perimenopausal disorders ==

== ENCOUNTER 2022-10-01 11:57 | Emergency (ER) | payer OTHER ==
[~2022-10-01] VITALS: Ht 165.1 cm; Wt 100.7 kg
[2022-10-01 12:02] VITALS: TEMP 98
[2022-10-01 14:52] VITALS: BP 149/79
== END 2022-10-01 14:53 | disposition home or self-care (01) ==
LOC: ED 11:57
DX: G44.209 Tension-type headache, unspecified, not intractable (principal)
CPT/HCPCS: 96372; 99283; J1885

== ENCOUNTER 2022-12-16 11:02 | Outpatient (CLI) | payer OTHER | END 2022-12-16 19:12 | disposition home or self-care (01) | LOC: US 11:02 | PROVIDERS: ATTEND Nurse Practitioner Family | DX: E07.89 Other specified disorders of thyroid (principal) ==

== ENCOUNTER 2023-01-24 11:02 | Outpatient (CLI) | payer OTHER | END 2023-01-24 20:48 | disposition home or self-care (01) | LOC: US 11:02 | PROVIDERS: ATTEND Registered Nurse | DX: M25.861 Other specified joint disorders, right knee (principal) ==

== ENCOUNTER 2023-02-26 14:17 | Emergency (ER) | payer OTHER ==
[~2023-02-26] VITALS: Ht 165.1 cm; Wt 102.1 kg
[2023-02-26 15:08] LABS: PLATELET COUNT 151 K/uL (152-353)
[2023-02-26 15:13] LABS: POTASSIUM 3.8 mmol/L (3.6-5.2)
[2023-02-26 16:50] VITALS: BP 148/57; TEMP 98.7
== END 2023-02-26 16:55 | disposition home or self-care (01) ==
LOC: ED 14:17
PROVIDERS: Family Medicine
DX: N39.0 Urinary tract infection, site not specified (principal); J01.90 Acute sinusitis, unspecified; B97.89 Other viral agents as the cause of diseases classified elsewhere; R51.9 Headache, unspecified; R50.9 Fever, unspecified; N28.9 Disorder of kidney and ureter, unspecified
CPT/HCPCS: 80053; 81000; 85027; 87086; 87088; 87502; 87635; 96372; 99283; J0696; U0003

== ENCOUNTER 2023-03-02 13:30 | Outpatient (CLI) | payer OTHER ==
[2023-03-02 14:09] LABS: PLATELET COUNT 178 K/uL (152-353)
[2023-03-02 14:32] LABS: POTASSIUM 3.8 mmol/L (3.6-5.2); SODIUM 142 mmol/L (136-145)
== END 2023-03-02 18:59 | disposition home or self-care (01) ==
LOC: LABW 13:30
PROVIDERS: ATTEND Student in an Organized Health Care Education/Training Program
DX: I12.9 Hypertensive chronic kidney disease with stage 1 through stage 4 chronic kidney disease, or unspecified chronic kidney disease (principal); N18.32 Chronic kidney disease, stage 3b; E11.9 Type 2 diabetes mellitus without complications; E87.6 Hypokalemia; R80.8 Other proteinuria; D63.1 Anemia in chronic kidney disease; E79.0 Hyperuricemia without signs of inflammatory arthritis and tophaceous disease
CPT/HCPCS: 36415; 80053; 81002; 82306; 82570; 83735; 83970; 84100; 84156; 84550; 85027